=== PATIENT | male | born 1980 | race Caucasian/White ===

== ENCOUNTER 2020-05-28 13:53 | Emergency (ER) | payer BC, OTHER ==
[~2020-05-28] VITALS: Ht 188 cm; Wt 109.1 kg
[~2020-05-28 13:53] MED LIST: DOXY100C2 PO; HYDR1TAB10 PO; ONDA8TAB12 PO; OSEL75CA PO
[2020-05-28] MEDS ORDERED: LIDOCAINE 2%/EPI 1:100,000 20 ML VIAL. ONE (14:02)
[2020-05-28] MEDS ORDERED: LIDOCAINE 1%/EPI 1:100,000 20 ML VIAL. IJ ONE (14:15)
[2020-05-28] MEDS ORDERED: LIDOCAINE 2%/EPI 1:100,000 20 ML VIAL. IJ ONE (14:15)
--- NOTE | 2020-05-28 14:23 | PHYS DOC ---
Past History Past Medical History: Other Additional Past Medical Histor: environmental allergies Past Surgical History: Cholecystectomy Smoking: Non-smoker Alcohol Use: None Drug Use: None General Adult EDM: Chief Complaint: HEAD INJURY/TRAUMA HPI: HPI: Patient is a male who presented to ER due to head injury. Patient was underneath a fire truck, he accidentally banged his head against a metal object. No loss of consciousness. Patient is up-to-date his tetanus vaccination status. Patient denies any headache, no neck pain, no nausea vomiting. The accident did happen about 45 minutes ago. Review of Systems: Review of Systems: Constitutional: Denies fever or chills Eyes: Denies change in visual acuity HENT: Denies nasal congestion or sore throat Respiratory: Denies cough or shortness of breath Cardiovascular: Denies chest pain or edema GI: Denies abdominal pain, nausea, vomiting, bloody stools or diarrhea : Denies dysuria Musculoskeletal: Denies back pain or joint pain Integument: Positive for laceration on the scalp. Neurologic: Denies headache, focal weakness or sensory changes Endocrine: Denies polyuria or polydipsia Lymphatic: Denies swollen glands Psychiatric: Denies depression or anxiety Current Medications: Current Meds: Current Medications Medications (Trade) Dose Ordered Sig/Payam Start Time Stop Time Status Last Admin Dose Admin Lidocaine/ Epinephrine (Xylocaine 1%-Epi 1:100,000) 20 ml 1X ONCE 05/28/20 14:15 05/28/20 14:13 DC Lidocaine/ Epinephrine (Xylocaine 2%-Epi 1:100,000) 20 ml 1X ONCE 05/28/20 14:15 05/28/20 14:16 DC 05/28/20 14:15 20 ML Allergies: Allergies: Allergies Coded Allergies Type Severity Reaction Last Updated Verified No Known Drug Allergies 09/17/13 No Physical Exam: PE: Constitutional: Well developed, well nourished, no acute distress, non-toxic appearance. [] HENT: Normocephalic, 5 cm laceration on the right temporal area, bilateral external ears normal, oropharynx moist, no oral exudates, nose normal. [] Eyes: PERRLA, EOMI, conjunctiva normal, no discharge. [] Neck: Normal range of motion, no tenderness, supple, no stridor. [] Cardiovascular:Heart rate regular rhythm, no murmur [] Lungs & Thorax: Bilateral breath sounds clear to auscultation [] Skin: Warm, dry, no erythema, no rash. [] Extremities: No tenderness, no cyanosis, no clubbing, ROM intact, no edema. [] Neurologic: Alert and oriented X 3, normal motor function, normal sensory function, no focal deficits noted. [] Psychologic: Affect normal, judgement normal, mood normal. [] Current Patient Data: Vital Signs: Vital Signs Date Time Temp Pulse Resp B/P (MAP) Pulse Ox O2 Delivery O2 Flow Rate FiO2 05/28/20 13:53 98.3 84 18 149/105 (120) 98 Room Air EKG: EKG: [] Radiology/Procedures: Radiology/Procedures: Indication: Scalp laceration Procedure: The patient was placed in the appropriate position and anesthesia around the right temporal area, laceration area. The area was then cleaned with saline. The laceration was closed with 6 gorge. [LAC CLOSURE]. [ADDITIONAL The wound area was then dressed with gauze. Total repaired wound length: 5 cm Other Items: [OTHER ITEMS] The patient tolerated the procedure well. Complications: No complication Heart Score: C/O Chest Pain: N/A Risk Factors: Risk Factors: DM, Current or recent (<one month) smoker, HTN, HLP, family history of CAD, obesity. Risk Scores: Score 0 - 3: 2.5% MACE over next 6 weeks - Discharge Home Score 4 - 6: 20.3% MACE over next 6 weeks - Admit for Clinical Observation Score 7 - 10: 72.7% MACE over next 6 weeks - Early Invasive Strategies Course & Med Decision Making: Course & Med Decision Making Pertinent Labs and Imaging studies reviewed. (See chart for details) Patient is a 40-year-old male who injured his head while he was at work today. Patient hit his head against the metal object on the fire truck, patient did not lose consciousness, patient denies any headache, patient denies taking any blood thinner. There is no indication of CT scan of the head. The wound was clean with normal saline, patient was up-to-date on the tetanus vaccination status. Patient wound was closed with gorge. He was discharged home in stable condition, recommend to have staple removal in 7 days by his doctor. Devaughn Disclaimer: Devaughn Disclaimer: This electronic medical record was generated, in whole or in part, using a voice recognition dictation system. Departure Departure: Impression: Primary Impression: Scalp laceration Additional Impression: Head injury due to trauma Disposition: HOME / SELF CARE / HOMELESS Condition: STABLE Referrals: PCP,NO (PCP) follow up with your doctor in 7 days for gorge removal Patient Instructions: Head Injury, Adult, Staple Care and Removal Additional Instructions: Thank you for visiting our Emergency Department. We appreciate you trusting us with your care. If any additional problems come up don't hesitate to return to visit us. Please follow up with your primary care provider so they can plan additional care if needed and know about the problem that you had. If symptoms worsen come back to the Emergency Department. Any concerning symptoms that start such as chest pain, shortness of air, weakness or numbness on one side of the body, running high fevers or any other concerning symptoms return to the ER. IFRAH CANO DO May 28, 2020 14:23
[2020-05-28 14:28] VITALS: BP 147/96
== END 2020-05-28 14:33 | disposition home or self-care (01) ==
LOC: ER 13:53
DX: S01.01XA Laceration without foreign body of scalp, initial encounter (principal); W26.8XXA Contact with other sharp object(s), not elsewhere classified, initial encounter; Y93.89 Activity, other specified; Y92.89 Other specified places as the place of occurrence of the external cause; Y99.8 Other external cause status
CPT/HCPCS: 12002; 99282